=== PATIENT | female | born 1980 | race African-American/Black ===

== ENCOUNTER 2017-06-26 19:04 | Emergency (ER) | payer OTHER ==
[~2017-06-26] VITALS: Ht 160 cm; Wt 122.1 kg
[~2017-06-26 19:04] MED LIST: IBUP600 PO; PERC5TAB12 PO; PREN0.01 PO
[2017-06-26 19:06] VITALS: BP 123/86; PULSE 106; RESP 18; TEMP 97.5; O2SAT 98
[2017-06-26] MEDS ORDERED: SODIUM CHLORIDE 0.9% FLUSH 10 ML FLUSH IVF PRN (19:30)
[2017-06-26] MEDS ORDERED: KETOROLAC TROMETHAMINE 30 MG/ML (IVP) VIAL IV PUSH ONE ×2 (19:30→21:15)
[2017-06-26] MEDS ORDERED: methylPREDNISolone SOD SUCC 125 MG/2 ML VIAL IV PUSH ONE (19:30)
[2017-06-26] MEDS ORDERED: RESP: ALBUTEROL 2.5 MG/IPRATROPIUM 0.5 MG NEB (SCH) INH ONE (19:30)
[2017-06-26] MEDS ORDERED: FURO1TAB62 PO (19:47)
[2017-06-26] MEDS ORDERED: PHEN-556 PO (19:47)
[2017-06-26] MEDS ORDERED: VITA1000 PO (19:47)
[2017-06-26] MEDS ORDERED: MONT4CHW2 CHEW (19:47)
[2017-06-26] MEDS ORDERED: CLAR10CA3 PO (19:47)
--- NOTE | 2017-06-26 19:47 | PD ---
HPI Chief Complaint: Respiratory Symptoms Time Seen by Provider: 19:13 Travel History International Travel<30 days: No Contact w/Intl Traveler<30days: No Traveled to known affect area: No History of Present Illness HPI Patient is a 36 year old female who presents to the ER with multiple complaints. Patient reports that for the past few days, she has had a productive cough. Reports that in addition, she has had laryngitis over the past 2 days. Reports that she is having myalgia's. Denies fever/chills. Reports no sick contacts. She did receive flu vaccine this year. Patient also reports concern as today, she has had a sharp stabbing pain to her right temporal side of her scalp. She did try taking ibuprofen with no relief of symptoms. Reports that "it's not a headache, just a sharp stabbing pain to the right side of my head." Denies photophobia, denies any trauma. Denies chest alexis/sob PFSH Past Medical History Cardiovascular Problems: No Gastrointestinal Disorders: No GERD: Yes Genitourinary: No Medical other: Yes (edema) Musculoskeletal: No Neurologic: Yes Reproductive: No Respiratory: No Immunizations Current: Yes Migraines: Yes Tetanus Vaccination: Unknown Influenza Vaccination: Yes ?: Not LMP: 4-6-18 : 1 Para: 1 Miscarriage: 0 : 0 Dilation and Curettage (D&C): Yes Past Surgical History Surgical History: No Previous Surgery Other Surgery: No Social History Alcohol Use: No Tobacco Use: No Substance Use: No Allergies-Medications (Allergen,Severity, Reaction): Coded Allergies: No Known Allergies (Verified Adverse Reaction, Unknown, 06/26/17) Reported Meds & Prescriptions Reported Meds & Active Scripts Active Motrin 600 Mg Tab (Ibuprofen) 600 Mg Tab 600 Mg PO Q6H PRN 30 Days Percocet 5-325 mg (Oxycodone/Acetaminophen) 1 Tab Tab 1 Tab PO Q4H PRN 30 Days Reported Singulair (Montelukast Sodium) 4 Mg Chew 4 Mg CHEW HS Claritin (Loratadine) 10 Mg Cap 10 Mg PO DAILY Vitamin D-1000 (Cholecalciferol) 1,000 Unit Tab 1,000 Units PO DAILY Lomaira (Phentermine HCl) 8 Mg Tab 37.5 Mg PO DAILY Lasix (Furosemide) 20 Mg Tab 20 Mg PO DAILY Vit ( Plus) (Prenat Multivit/Bronc Buster/Iron/Folic Ac) Tab 1 Tab PO DAILY Review of Systems General / Constitutional: No: Fever Eyes: No: Visual changes HENT: No: Headaches Cardiovascular: No: Chest Pain or Discomfort Respiratory: Positive: Cough, Other (larygnitis), No: Shortness of Breath Gastrointestinal: No: Abdominal Pain Genitourinary: No: Dysuria Musculoskeletal: No: Pain Skin: No Rash Neurologic: No: Weakness Psychiatric: No: Depression Endocrine: No: Polydipsia Hematologic/Lymphatic: No: Easy Bruising Physical Exam Narrative GENERAL: NAD SKIN: Focused skin assessment warm/dry. HEAD: Atraumatic. Normocephalic. EYES: Pupils equal and round. No scleral icterus. No injection or drainage. ENT: No nasal bleeding or discharge. Mucous membranes pink and moist. NECK: Trachea midline. No JVD. CARDIOVASCULAR: Regular rate and rhythm. No murmur appreciated. RESPIRATORY: No accessory muscle use. Clear to auscultation. Breath sounds equal bilaterally. GASTROINTESTINAL: Abdomen soft, non-tender, nondistended. Hepatic and splenic margins not palpable. MUSCULOSKELETAL: No obvious deformities. No clubbing. No cyanosis. No edema. NEUROLOGICAL: Awake and alert. No obvious cranial nerve deficits. Motor grossly within normal limits. Normal speech. CN 2-12 grossly intact with no neurovascular deficits PSYCHIATRIC: Appropriate mood and affect; insight and judgment normal. Data Data Last Documented VS Vital Signs Date Time Temp Pulse Resp B/P (MAP) Pulse Ox O2 Delivery O2 Flow Rate FiO2 06/26/17 20:59 92 20 109/67 (81) 100 Room Air 06/26/17 19:06 97.5 Orders Orders Complete Blood Count With Diff (06/26/17 19:29) Basic Metabolic Panel (Bmp) (06/26/17 19:29) Influenzae A/B Antigen (06/26/17 19:29) Iv Access Insert/Monitor (06/26/17 19:29) Ecg Monitoring (06/26/17 19:29) Oximetry (06/26/17 19:29) Chest, Pa & Lat (06/26/17 19:29) Sodium Chloride 0.9% Flush (Ns Flush) (06/26/17 19:30) Methylprednisolone So Succ Inj (Solumedr (06/26/17 19:30) Albuterol-Ipratropium Neb (Duoneb Neb) (06/26/17 19:30) Ketorolac Inj (Toradol Inj) (06/26/17 19:30) Ct Brain W/O Iv Contrast(Rout) (06/26/17 21:15) Ketorolac Inj (Toradol Inj) (06/26/17 21:15) Metoclopramide Inj (Reglan Inj) (06/26/17 21:15) Amoxicil-Clavulanate (Augmentin) (06/26/17 22:45) Labs Laboratory Tests Test 06/26/17 19:52 White Blood Count 14.1 TH/MM3 Red Blood Count 4.49 MIL/MM3 Hemoglobin 13.1 GM/DL Hematocrit 39.6 % Mean Corpuscular Volume 88.3 FL Mean Corpuscular Hemoglobin 29.2 PG Mean Corpuscular Hemoglobin Concent 33.1 % Red Cell Distribution Width 13.4 % Platelet Count 254 TH/MM3 Mean Platelet Volume 10.2 FL Neutrophils (%) (Auto) 56.9 % Lymphocytes (%) (Auto) 35.9 % Monocytes (%) (Auto) 6.0 % Eosinophils (%) (Auto) 1.0 % Basophils (%) (Auto) 0.2 % Neutrophils # (Auto) 8.1 TH/MM3 Lymphocytes # (Auto) 5.1 TH/MM3 Monocytes # (Auto) 0.8 TH/MM3 Eosinophils # (Auto) 0.1 TH/MM3 Basophils # (Auto) 0.0 TH/MM3 CBC Comment AUTO DIFF Differential Total Cells Counted 100 Neutrophils % (Manual) 52 % Lymphocytes % 43 % Monocytes % 5 % Neutrophils # (Manual) 7.3 TH/MM3 Differential Comment FINAL DIFF MANUAL Platelet Estimate NORMAL Platelet Morphology Comment NORMAL Red Cell Morphology Comment NORMAL Blood Urea Nitrogen 22 MG/DL Creatinine 1.10 MG/DL Random Glucose 99 MG/DL Calcium Level 9.4 MG/DL Sodium Level 137 MEQ/L Potassium Level 3.6 MEQ/L Chloride Level 102 MEQ/L Carbon Dioxide Level 27.9 MEQ/L Anion Gap 7 MEQ/L Estimat Glomerular Filtration Rate 68 ML/MIN MDM Medical Decision Making Medical Screen Exam Complete: Yes Emergency Medical Condition: Yes Medical Record Reviewed: Yes Interpretation(s) Vital Signs Date Time Temp Pulse Resp B/P (MAP) Pulse Ox O2 Delivery O2 Flow Rate FiO2 06/26/17 19:23 Room Air 06/26/17 19:06 97.5 106 18 123/86 (98) 98 Differential Diagnosis Bronchitis, pneumonia, laryngitis, electrolyte abnormality, influenza Narrative Course During the course of the patients emergency department visit, the patients history, examination, and differential diagnosis were reviewed with the patient. The patient was placed on a heading up machine operator with oximetry and frequent blood pressure monitoring. The patient had an IV access obtained and blood work sent for analysis. The patient was initially provided IV steroids, neb treatment as well as IV toradol The patients laboratory studies were reviewed and remarkable for: CBC & BMP Diagram 06/26/17 19:52 Calcium Level 9.4 Radiology studies were reviewed and remarkable for : Last Impressions Chest X-Ray 06/26/[id number] Signed Impressions: Service Date/Time: Saturday, June 26, 2017 20:10 - CONCLUSION: No acute disease. Kenneth Asher MD CT of the head: No acute intracranial abnormalities. Septated sphenoid sinus with air-fluid level on the right characteristic of acute sinusitis Patient with symptoms of most likely sinusitis. I reviewed all labs and studies with patient including all findings. Will start patient on Augmentin for treatment of acute sinusitis. Signs and symptoms of when to return to the ER was reviewed with patient in detail. Diagnosis Primary Impression: Sinusitis Qualified Codes: J01.90 - Acute sinusitis, unspecified Patient Instructions: General Instructions Departure Forms: Tests/Procedures, Work Release Enter return to work date: Jul 01, 2017 Additional Instructions: Please provide patient with a copy of their lab work and studies at discharge* * Please follow up with your primary care doctor in 2-3 days Return to the ER if symptoms worsen or progress Return to the ER as needed Med/Other Pt SpecificInfo: Prescription(s) given Scripts Amoxicillin-Clavulanate (Augmentin) 875-125 Mg Tab 1 TAB PO BID for Infection for 10 Days, #20 TAB 0 Refills Prov: Marylin Ramos DO 06/26/17 Disposition: 01 DISCHARGE HOME Condition: Stable Marylin Ramos DO Jun 26, 2017 19:47
[2017-06-26 20:03] LABS: AUTOMATED NEUTROPHIL # 8.1 TH/MM3 (1.8-7.7); BASOPHIL % 0.2 % (0.0-2.0); EOSINOPHIL # 0.1 TH/MM3 (0-0.4); HEMATOCRIT 39.6 % (35.0-46.0); HEMOGLOBIN 13.1 GM/DL (11.6-15.3); LYMPH % 35.9 % (9.0-44.0); LYMPHOCYTE # 5.1 TH/MM3 (1.0-4.8); MEAN CELL VOLUME 88.3 FL (80.0-100.0); MEAN CORPUSCULAR HEMOGLOBIN 29.2 PG (27.0-34.0); MEAN CORPUSCULAR HGB CONC 33.1 % (32.0-36.0); MEAN PLATELET VOLUME 10.2 FL (7.0-11.0); MONOCYTE # 0.8 TH/MM3 (0-0.9); NEUT % 56.9 % (16.0-70.0); PLATELET COUNT 254 TH/MM3 (150-450); RED BLOOD COUNT 4.49 MIL/MM3 (4.00-5.30); RED CELL DISTRIBUTION WIDTH 13.4 % (11.6-17.2); WHITE BLOOD COUNT 14.1 TH/MM3 (4.0-11.0)
[2017-06-26 20:18] LABS: CALCIUM 9.4 MG/DL (8.5-10.1)
[2017-06-26 20:19] LABS: BICARBONATE 27.9 MEQ/L (21.0-32.0)
[2017-06-26 20:22] LABS: CREATININE 1.1 MG/DL (0.50-1.00)
--- NOTE | 2017-06-26 20:48 | RADRPT ---
EXAM DATE/TIME: 06/26/2017 20:10 [facility] COMPARISON: No previous studies available for comparison. INDICATIONS : Short of breath and chest pain. MEDICAL HISTORY : None. SURGICAL HISTORY : None. ENCOUNTER: Initial ACUITY: 1 day PAIN SCORE: 7/10 LOCATION: Bilateral chest FINDINGS: PA and lateral views of the chest demonstrate the lungs to be symmetrically aerated without evidence of mass, infiltrate or effusion. The cardiomediastinal contours are unremarkable. Osseous structure s are intact. CONCLUSION: No acute disease. Kenneth Asher MD on June 26, 2017 at 20:46 Board Certified Radiologist. This report was verified electronically.
[2017-06-26 20:59] VITALS: BP 109/67; PULSE 92; RESP 20; O2SAT 100
[2017-06-26 21:08] LABS: LYMPHOCYTES 43 % (9-44); MONOCYTES 5 % (0-8); NEUTROPHIL # MANUAL DIFF 7.3 TH/MM3 (1.8-7.7); POLYS (SEG NEUTROPHILS) 52 % (16-70)
[2017-06-26] MEDS ORDERED: METOCLOPRAMIDE HCL 10 MG/2 ML VIAL IV PUSH ONE (21:15)
--- NOTE | 2017-06-26 22:42 | RADRPT ---
EXAM DATE/TIME: 06/26/2017 21:53 [facility] COMPARISON: No previous studies available for comparison. INDICATIONS : Cephalgia today. RADIATION DOSE: 59.81 CTDIvol (mGy) MEDICAL HISTORY : Gastroesophageal reflux disease. SURGICAL HISTORY : None. ENCOUNTER: Initial ACUITY: 1 day PAIN SCALE: 8/10 LOCATION: Bilateral head TECHNIQUE: Multiple contiguous axial images were obtained of the head. Using automated exposure control and adj ustment of the mA and/or kV according to patient size, radiation dose was kept as low as reasonably a chievable to obtain optimal diagnostic quality images. DICOM format image data is available electro nically for review and comparison. FINDINGS: CEREBRUM: The ventricles are normal for age. No evidence of midline shift, mass lesion, hemorrhage or acute in farction. No extra-axial fluid collections are seen. POSTERIOR FOSSA: The cerebellum and brainstem are intact. The 4th ventricle is midline. The cerebellopontine angle i s unremarkable. EXTRACRANIAL: The visualized portion of the orbits is intact. SKULL: The calvaria is intact. No evidence of skull fracture. Air fluid level right sphenoid sinus. CONCLUSION: 1. No acute intracranial abnormalities. Septated sphenoid sinus with air-fluid level on the right julienne racteristic of acute sinusitis. Kenneth Asher MD on June 26, 2017 at 22:38 Board Certified Radiologist. This report was verified electronically.
[2017-06-26] MEDS ORDERED: AMOXICILLIN/CLAVULANATE K 875 MG TAB PO ONE (22:45)
[2017-06-26] MEDS ORDERED: AUGM875T3 PO (22:50)
[2017-06-26 23:10] VITALS: BP 112/76
== END 2017-06-26 23:21 | disposition home or self-care (01) ==
LOC: PHED 19:04
DX: J01.30 Acute sphenoidal sinusitis, unspecified (principal); K21.9 Gastro-esophageal reflux disease without esophagitis; Z79.899 Other long term (current) drug therapy
CPT/HCPCS: 70450; 71046; 80048; 85007; 85027; 87804; 94664; 96374; 96375; 96376; 99284; J1885; J2765; J2930